=== PATIENT | male | born 1995 ===

== ENCOUNTER 2016-09-15 01:49 | Emergency (ER) | payer SELFPAY ==
[2016-09-15 01:55] VITALS: BP 107/65; PULSE 86; RESP 16; TEMP 97; O2SAT 93
[2016-09-15] MEDS ORDERED: BACITRACIN 500 U/GM OIN TOP ONE ×2 (01:58)
== END 2016-09-15 02:30 | disposition home or self-care (01) | DRG 897 ==
LOC: ED 01:49
DX: F10.129 Alcohol abuse with intoxication, unspecified (principal); S60.511A Abrasion of right hand, initial encounter; S80.211A Abrasion, right knee, initial encounter
CPT/HCPCS: 99282; 99283; A4450

== ENCOUNTER 2017-03-14 20:40 | Emergency (ER) | payer OTHER ==
[2017-03-14 21:28] VITALS: RESP 18; TEMP 97.8
[2017-03-14 22:26] VITALS: BP 133/73; PULSE 69; O2SAT 99
== END 2017-03-14 22:25 | disposition home or self-care (01) | DRG 563 ==
LOC: ED 20:40 → MERGE 20:40 → ED 22:25
DX: S63.502A Unspecified sprain of left wrist, initial encounter (principal); V80.010A Animal-rider injured by fall from or being thrown from horse in noncollision accident, initial encounter
CPT/HCPCS: 73110; 99282